=== PATIENT | female | born 1980 | race Caucasian/White ===

== ENCOUNTER 2017-03-30 09:57 | Emergency (ER) | payer OTHER ==
[~2017-03-30 09:57] MED LIST: COL100L PO; HYDR1TAB91 PO; IBUP-1152 PO; PREN-49 PO
[2017-03-30 10:21] VITALS: BP 131/81; PULSE 75; RESP 15; O2SAT 99
--- NOTE | 2017-03-30 11:33 | ED.REPORT ---
HPI-Extremity Problem Upper Date of Service March 30, 2017 ED Provider: Wild Mclaughlin PA-C Carmelita is a 37-year-old female with chief complaint of muscle spasms in her back neck and right arm. Patient reports a three-year history of similar symptoms, although she states they are worse than usual today. Reports pain in her right shoulder elbow and wrist is on as well as reduced range of motion in her elbow. States that her right hand feels cold. She has been holding the elbow in flexion since symptoms began on Tuesday approximately 3 days ago. Also complains of daily migraines associated with photophobia for the last year, which are familiar to her and unchanged today. She reports this has been thoroughly investigated including MRI and found to be normal. Patient has orthopedic follow-up arranged as well as neurological follow-up arranged. She typically sees Dr. Hung. Patient reports limited relief from approximately 3 mg of baclofen taken 3 times a day as well as ibuprofen and acetaminophen. She does not feel she can take more due to sedation. She reports that multiple efforts had trigger point injections have ranged from unhelpful to antagonistic. Denies weakness in the limb, loss of sensation. Nursing Notes Stated Complaint: SEVERE MUSCLE SPASMS RT ARM/NECK Chief Complaint: General Complaint Nursing Notes Reviewed: Yes Allergies: Coded Allergies: isotretinoin (Verified Allergy, Severe, swelling of lips and face, 03/30/17 ) Scheduled Baclofen (Baclofen) 10 Mg Tablet 10 MG PO TID Vit/Fe Fumarate/Fa-Expunged Drug, Do (Prenaplus-Expunged Drug, Do Not Renew!) 1 Each Tablet 1 EACH PO DAILY Scheduled PRN Docusate Sod-Expunged Drug, Do Not Renew! (Docusate Sod-Expunged Drug, Do Not Renew!) 100 Mg Capsule 100 MG PO BID PRN PRN For Constipation Hydrocod/APAP-Expunged, Do Not Renew! (Hydrocod/APAP-Expunged, Do Not Renew!) 1 Ea Tablet 1-2 EA PO Q3 PRN PRN For Pain IBUPROFEN-Expunged Drug, Do Not Renew! (IBUPROFEN-Expunged Drug, Do Not Renew!) 800 Mg Tablet 800 MG PO Q6 PRN PRN For Pain Metoclopramide (Metoclopramide) 10 Mg Tablet 10 MG PO QID PRN PRN Headache General Time Seen by MD: 11:05 Chief Complaint Shoulder injury right Past Medical History Past Medical History Shoulder pain, Migraine headaches Review of Systems Review of Systems Note: Negative unless stated otherwise in history of present illness Physical Exam General: Well appearing, well developed, well nourished, no acute distress. Neck: Normal to inspection, nontender, full range of motion. Back: Normal to inspection, mild, diffuse tenderness over scapula, most notable at upper medial border. Negative midline spinous process tenderness. Right arm: Normal to inspection, nontender at shoulder, elbow, and wrist. She reports associated pain and trapezius and latissimus dorsi muscles with extension of elbow as well as flexion/extension, abduction of shoulder. Radial pulse 2+ Head: Atraumatic, normocephalic. Eyes: No scleral icterus or injection. No discharge. Vision grossly intact. ENT: Voice clear, hearing grossly intact. Respiratory: No respiratory distress, no increased work of breathing. Speaks in complete sentences. Skin: Warm and dry. Neurological: finger flexion and abduction strength 5/5 B/L. Sensation to light touch intact over first, third and fifth digits B/L. Cranial nerves: Vision grossly intact, PERRL, EOMI. Facial motion symmetrical, sensation to light touch over forehead, maxilla and mandible present and equal B /L. Voice clear and fluent, no drooling/pooling of saliva, uvula rises midline. Psychological: alert and oriented. Speech appropriate, linear and logical. Behavior appropriate. Initial Vital Signs Vital Signs (First) Date Time Temp Pulse Resp B/P Pulse Ox O2 Delivery O2 Flow Rate FiO2 03/30/17 10:21 36.8 75 15 131/81 99 Room Air Initial VS: Vital signs normal Re-Eval/Medical Decision Med Decision/Clinical Course 37 year female with a 3 year history of right upper back spasm and pain presents with complaint of same as well as a well-known migraine headache. Patient reports that both conditions have been thoroughly investigated without a clear etiology determined. Negative previous success with relaxants, trigger point injections, physical therapy. Reports typical migraine headache today as well as worse than usual back spasm and right arm pain since 3 days. Denies neurological symptoms, changes to her headache. Attempted treatment with acetaminophen and ibuprofen as well as approximate 3 mg of baclofen to minimal effect. She states "I am just hoping that you have a trick that no one else has thought of" Physical examination reveals tenderness over the back as well as diffuse muscular back pain with arm range of motion. Negative midline cervical or thoracic spinous process tenderness. Sensation and strength are intact in upper limbs, radial pulses 2+. Cranial nerves intact. Vital signs normal. Patient is clearly frustrated and tearful. I discussed this case with Dr. Jackson. At this point I believe this is musculoskeletal pain, and in the absence of progressive neurological symptoms do not see indication for further imaging. Headache is well known and unchanged from previous. Patient accepts acetaminophen and ibuprofen as well as Reglan to treat her headache. Declines Benadryl, cyclobenzaprine. Patient has orthopedic, neuro and primary care follow-up in place. Advised emergent return precautions, provide a prescription and for a small amount of baclofen as well as Reglan. Patient verbalizes understanding of and consent to the plan Discharge & Departure Impression: Primary Impression: Muscle spasm Additional Impression: Migraine headache Migraine type: unspecified Disposition: Home Discharge Condition All VS Reviewed: Yes Condition: Stable Additional Instructions: Evaluation for shoulder pain in the emergency department consists of history and physical examination which are reassuring that this is unlikely because by an immediately dangerous condition. He do not report a history of trauma, so I do not believe x-rays will provide us any useful information. This is been thoroughly investigated by your other providers. I am sorry this is been such a difficult process. Unfortunately, I do not have any tricks that they have not already tried for this. He incidentally mentioned that you have a daily migraine headache, which is well -known to you and has been thoroughly investigated. In the absence of a significant change, I do not feel a further investigation is required. In the emergency department, we will get another dose of ibuprofen and acetaminophen as well as metoclopramide (Reglan), which is often quite helpful for migraines. I will write a prescription for the Reglan to use if he finds helpful. I also recommended adding 25 mg of Benadryl to this regimen for further headache relief, when you are at home and sedation is less of an issue. I will refill a small amount your baclofen, to used to treat the muscle spasms. Follow-up with your primary care provider and orthopedics as you have planned. I think this is the best course for further investigating your pain. Return to emergency department for new or worsening symptoms including a cold/ numb limb, new or increasing pain. Referrals: Dragan Mejia MD (PCP) EDSupervising Provider for [facility]: Boris Nina DO copies to: Dragan Mejia MD, Seth PA-C March 30, 2017 11:33
[2017-03-30] MEDS ORDERED: BACL10TA PO (11:42)
[2017-03-30] MEDS ORDERED: METO10TA3 PO (11:42)
== END 2017-03-30 12:18 | disposition home or self-care (01) ==
LOC: SED 09:57
DX: M62.838 Other muscle spasm (principal); G43.909 Migraine, unspecified, not intractable, without status migrainosus; Z88.8 Allergy status to other drugs, medicaments and biological substances